=== PATIENT | female | born 1985 | race Caucasian/White ===

== ENCOUNTER 2020-12-20 10:25 | Emergency (ER) | payer MEDICAID, SELFPAY ==
--- NOTE | ~2020-12-20 | XR_ITS ---
EXAMINATION: XR CHEST CLINICAL INFORMATION: Cough COMPARISON: None TECHNIQUE: 2 views of the chest were obtained. FINDINGS: The cardiac and mediastinal contours are normal. There are surgical clips projecting over the posterior chest and mediastinum. There may be central bronchial wall thickening suggestive of bronchitis or asthma. No evidence of a pneumonia is seen. There is no pleural effusion or pneumothorax. There is a thoracolumbar scoliosis. Bony structures are otherwise unremarkable. XR/XR chest 2V IMPRESSION: Postsurgical changes to the chest. Question central bronchial wall thickening suggestive of bronchitis or asthma. No evidence of pneumonia. Mild scoliosis.
[2020-12-20 10:40] VITALS: BP 134/70; PULSE 83; RESP 18; TEMP 36.4; O2SAT 93; BMI 26.5
--- NOTE | 2020-12-20 11:09 | ED.URI ---
HPI - URI/Sore Throat General Chief Complaint: Upper Respiratory Symptoms Stated Complaint: Cough/SOB Time Seen by Provider: 12/20/20 11:00 Source: patient Mode of arrival: ambulatory Limitations: no limitations History of Present Illness HPI Narrative: 35 years old female is here today for complaining of cough for the last 3 days. Patient reports that she started with rhinorrhea, postnasal drip. Patient reports that when she walks she gets short of breath. Denies any history of asthma in the past. Every day smoker, however she reports that she decreased the amount of cigarettes that she smokes per day. Denies fever or chills. Patient received both COVID vaccine no flu vaccine this season. Patient denies any ill contacts. Patient reports that she usually gets symptoms like that every year around the same time. Patient denies any CP, palpitation, syncope or presyncope. Denies any nausea or vomiting. Denies any other concerning symptoms MD elicited complaint: rhinorrhea Pertinent past history: pneumonia Onset (ago): day(s) Consistency: intermittent Severity: mild Description of mucous: yellow Able to tolerate fluids by mouth: Yes Exacerbating factors: deep breaths Relieving factors: nothing Associated symptoms: denies other symptoms Related Data Previous Rx's Medication Instructions Recorded albuterol sulfate 2.5 mg (3 mL) INHALATION QID PRN 12/20/20 #90 ml albuterol sulfate 90 mcg/actuation 1 inh INHALATION QID PRN #8.5 g 12/20/20 aerosol inhaler (ProAir HFA) azithromycin 250 mg tablet 250 mg PO DAILY #4 tab 12/20/20 (Zithromax) benzonatate 100 mg capsule 100 mg PO BID PRN #20 cap 12/20/20 nebulizer and compressor #1 ea 12/20/20 prednisone 20 mg tablet 60 mg PO DAILY 5 Days #15 tab 12/20/20 Allergies Allergy/AdvReac Type Severity Reaction Status Date / Time No Known Allergies Allergy Verified 12/20/20 10:46 Review of Systems Review of Systems: Constitutional : No Weight loss, No Fever, No Chills, No Night Sweats, No Fatigue, No Malaise ENT/Mouth : No Hearing loss, No Ear Pain, No Nasal Congestion, No Sinus Pain, No Hoarseness, No sore throat, No Rhinorrhea, No Swallowing Difficulty Eyes: No Eye Pain, No Swelling, No Redness, No Foreign Body, No Discharge, No Vision Changes Cardiovascular : No Chest Pain, No SOB, No Dyspnea on Exertion, No Orthopnea, No Edema, No Palpitations Respiratory : Cough, Yellow Sputum, No Wheezing, No Smoke Exposure, No Dyspnea, tobacco smoker Gastrointestinal : No Nausea, No Vomiting, No Diarrhea, No Constipation, No abdominal Pain, No Hematochezia, No Melena Genitourinary : no irregular bleeding, No Dysuria, No Urinary Frequency, No Hematuria, No Urinary Incontinence, No Urgency, No Flank Pain, No Urinary Flow Changes, No Hesitancy Musculoskeletal : No joint pain, No Myalgias, No Joint Swelling Skin : No Skin Lesions, No rash Neuro : No Weakness, No Numbness, No Paresthesias, No Loss of Consciousness, No Dizziness, No Headache Psych : No Anxiety/Panic, No Depression, No SI/HI/AH/VH, No Social Issues, Yes all other systems are reviewed and are negative [facility] Past Medical History Medical History (Updated 12/20/20 @ 14:[address] [facility]) No known health problems Social History Social History Advance Directives: No Advance Directives Information Provided: Yes Patient : No Physical Exam Vital Signs: Vital Signs: Last Vital Signs Temp 98.5 F 12/20/20 14:17 Pulse 99 12/20/20 14:17 Resp 21 H 12/20/20 14:17 BP 119/57 L 12/20/20 12:10 Pulse Ox 93 12/20/20 14:17 Body Mass Index 26.5 Const: General: healthy appearing, no acute distress and well developed Nutritional Appearance: well nourished Orientation/consciousness: patient oriented x3 HENMT: Head: Yes normal to inspection, Yes normocephalic and Yes atraumatic Face and sinus: Yes normal facial exam Mouth: Normal oral and palatal mucosa present Throat: Yes posterior oropharynx normal, Yes tonsils normal and Yes uvula midline Eyes: General: appearance normal, both eyes and all related structures Neck: Neck: Yes normal visual inspection, Yes full ROM and Yes trachea midline Thyroid: Thyroid normal Resp: Effort & Inspection: normal respiratory effort, able to speak in complete sentences, no tracheal deviation and symmetric chest movement Auscultation: wheezes (Inspiratory and expiratory wheeze) Cardio: Jugular venous distension: no JVD Rate: regular rate Rhythm: regular rhythm Heart sounds: S1 normal heart sound present, S2 normal heart sound present, no gallops and no murmurs GI: Inspection: Yes normal to inspection and No distended Palpation (GI): Soft to palpation, not firm, nontender and No hepatosplenomegaly present Auscultation: normal bowel sounds : General: Yes no CVA tenderness Back/Spine/Pelvis: Back: no CVA tenderness Skin: General skin exam: elasticity normal, turgor normal and dry skin Neuro: General: patient oriented x3 Psych: Appearance: grossly normal Mental Status: mental status grossly normal Speech and movement: Normal speech and movement present Affect: normal affect Attitude: cooperative Thought process: Normal thought process present Thought content: Normal thought content present Insight: Good insight present (Psych) Judgement: Good judgement present (Psych) Course Course Course Narrative: 35 years old female is here today for cold-like symptoms. Patient reports that started 3 days ago and now her symptoms are getting worse. Started with rhinorrhea, postnasal drip and cough. Now patient reports that she does have a productive yellow sputum. Reports shortness of breath when she is ambulating. Patient received both COVID vaccine and no full vaccine yet. Reports of similar symptoms last year around that same time. Patient denies body aches, fever or chills. No ill contacts. Patient denies ever having history of asthma. Upon exam patient has bilateral lobes inspiratory and expiratory wheezes. Will do chest x-ray, give her prednisone and Tessalon Perles. Will swab her for COVID, flu, RSV. Will order updraft treatment, and reassess Reevaluation(s) Reevaluation #1: Chest x-ray shows central bronchial wall thickening suggestive of bronchitis or asthma. Lung sounds continue with inspiratory and expiratory wheeze. Patient reports that her cough is suppressed for now by Tessalon Perles. Will order 2nd half an hour treatment. Patient's O2 sat is 93% on room air. Reevaluation #2: Second treatment done heart rate 110-120. Patient continues to have inspiratory wheeze, expiratory wheeze improved. Patient continues to have low O2 sat. Discussed with patient that I would like to get CT scan of the chest with IV contrast, patient wants to go home does not want to stay. Patient was encouraged to stay, however she states that she has 4 children at home and she has to get home. She would like to get antibiotics and she will return if her symptoms will get worse. Respiratory therapy did inhaler teaching with spacer. Patient was encouraged to stop smoking. Swab was negative for COVID, flu or RSV MDM - URI/Sore Throat Lab Data Labs: Lab Results 12/20/20 Range/Units 10:58 Influenza Type A (PCR) NEGATIVE (Negative) Influenza Type B (PCR) NEGATIVE (Negative) RSV RNA Qual (PCR) NEGATIVE (Negative) SARS-CoV-2 RNA (RT-PCR) NEGATIVE (Negative) Discharge Plan Discharge Clinical Impression: Bronchitis Asthma Qualifiers: Asthma severity: moderate Asthma persistence: unspecified Asthma complication type: with acute exacerbation Qualified Code(s): J45.901 - Unspecified asthma with (acute) exacerbation Patient Disposition: Left Against Medical Advice Instructions: Asthma (ED), Acute Bronchitis (ED), Bronchospasm (ED) Additional Instructions: You were seen here today for cough and upper respiratory infection. Your x-ray shows that you have a bronchitis. You were given 2 updraft treatments with some effect, however your lung sounds were abnormal in your oxygen level was low. You were given antibiotic and prednisone. Please continue antibiotic and prednisone till you finish. You declined staying and getting CT scan of your lungs. Please follow-up if your symptoms will get worse or if you experience any other additional concerning symptoms Prescriptions: New (DME) nebulizer and compressor Device See Rx Instructions .Route Qty: 1 RF: 0 albuterol sulfate 2.5 mg /3 mL (0.083 %) solution for nebulization 2.5 mg inhalation QID PRN (Reason: shortness of breath or wheezing) Qty: 90 RF: 0 albuterol sulfate [ProAir HFA] 90 mcg/actuation HFA aerosol inhaler 1 inh inhalation QID PRN (Reason: shortness of breath or wheezing) Qty: 8.5 RF: 0 azithromycin [Zithromax] 250 mg tablet 250 mg PO DAILY Qty: 4 RF: 0 prednisone 20 mg tablet 60 mg PO DAILY 5 Days Qty: 15 RF: 0 benzonatate 100 mg capsule 100 mg PO BID PRN (Reason: cough) Qty: 20 RF: 0 Interventions: ED Discharge Assessment Last Done: 12/20/20 14:29 Discharge Date/Time: 12/20/20 14:29
[2020-12-20] MEDS: Benzonatate 100 MG CAPSULE PO (11:16)
[2020-12-20] MEDS: predniSONE 20 MG TABLET 60 MG PO (11:17)
[2020-12-20] MEDS: Albuterol Sulfate (0.083%) 2.5 MG/3 ML VIAL.NEB 5 MG INHALE ×2 (11:27→13:09)
[2020-12-20 11:28] VITALS: PULSE 78; O2SAT 92
[2020-12-20 12:10] VITALS: BP 119/57; PULSE 102; RESP 21; O2SAT 93
[2020-12-20 12:14] VITALS: O2SAT 93
[2020-12-20 12:26] LABS: Influenza A PCR NEGATIVE (Negative); Influenza B PCR NEGATIVE (Negative); Resp Syncy Virus RNA Qual PCR NEGATIVE (Negative); SARS COV2 PCR INHOUSE NEGATIVE (Negative)
[2020-12-20] MEDS: Albuterol Sulfate 90 MCG 8 GM INHALER 2 PUFF INHALE (13:09)
[2020-12-20 13:13] VITALS: PULSE 94; O2SAT 95
[2020-12-20] MEDS: Azithromycin 500 MG TABLET PO (13:18)
--- NOTE | 2020-12-20 14:11 | PC.NURSE ---
PT STATING I HAVE TO LEAVE AND GET HOME TO MY 4 KIDS. CAN I JUST GET AN ANTIBIOTIC AND GO HOME.? PT ADVISED TO STAY FOR PROBABLE CT SCAN. PT LEAVING AMA.
[2020-12-20 14:17] VITALS: PULSE 99; RESP 21; TEMP 36.9; O2SAT 93
== END 2020-12-20 14:29 | disposition left against medical advice (07) ==
PROVIDERS: Nurse Practitioner Family; Emergency Provider Emergency Medicine Emergency Medical Services
DX: J45.901 Unspecified asthma with (acute) exacerbation (principal); J20.9 Acute bronchitis, unspecified; R05.9 Cough, unspecified; R06.02 Shortness of breath; J34.89 Other specified disorders of nose and nasal sinuses; Z20.822 Contact with and (suspected) exposure to COVID-19; Z79.899 Other long term (current) drug therapy
CPT/HCPCS: 0241U; 36415; 71046; 94640; 94644; 94645; 99284; 99285